=== PATIENT | male | born 1975 | race Caucasian/White ===

== ENCOUNTER 2023-09-08 15:41 | Outpatient (CLI) | payer OTHER, SELFPAY ==
--- NOTE | ~2023-09-08 | MR_ITS ---
EXAMINATION: MR knee RT w con DATE: 09/08/2023 16:42 INDICATION: Right knee pain TECHNIQUE: Magnetic resonance imaging (MRI) of the right knee was performed without intravenous contr ast. Sequences included coronal PD-weighted FSE, coronal PD-weighted FS FSE, sagittal T2-weighted FS E, sagittal PD-weighted FS FSE and axial PD weighted fat saturated FSE. COMPARISON: None. FINDINGS: Medial compartment: Complex tear at the posterior horn and posterior body of the medial meniscus. There is medial extrusi on of the medial meniscal body. There is scattered partial thickness chondral fissuring along the ant erior weightbearing medial femoral condyle at least a portion which is likely deeper with subtle unde rlying cortical irregularity . Small region of partial-thickness cartilage loss with smooth chondral surface along the posterior margin of the medial tibial plateau underlying the posterior horn of the medial meniscus. Small marginal osteophytes along the medial tibial plateau and small to moderate-siz ed marginal ossified swelling the weightbearing medial femoral condyle. Lateral compartment: Lateral meniscus is normal. Partial-thickness chondral ulceration with deep fissuring and minimal und erlying subarticular edema-like signal change at the posterior aspect of the lateral tibial plateau a nd at the central weightbearing lateral femoral condyle. Small marginal osteophytes are present. Patellofemoral compartment: Deep chondral ulceration with subarticular cystlike and edema-like signal changes at the inferior and superomedial aspect of the lateral patellar facet. Partial-thickness chondral ulceration does appear to involve greater than 50% the cartilage thickness but without degenerative subchondral changes at the lateral trochlea. Moderate-sized patellar and trochlear marginal osteophytes are present. Ligaments and tendons: Anterior and posterior cruciate ligaments are normal. The medial collateral ligament and fibular tracy ateral ligament complex are normal. The extensor mechanism is normal. The visualized medial and later al hamstring tendons as well as the iliotibial band are normal. Fluid: Small right knee joint effusion. Couple small loose osteochondral bodies are seen within the poplitea l recess. Small multilobulated ganglion cyst, potentially para meniscal cyst arising from the medial meniscal tear and extending between the distal semimembranosus and gracilis tendons. Osseous/other: No fracture or pathologic marrow replacing process. Red marrow expansion seen in the distal femur pro ximal to the physeal scar. IMPRESSION: 1. Complex tear of the posterior horn and posterior body of the medial meniscus. 2. 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 3. Likely reactive small right knee joint effusion. Reviewed, dictated and finalized at location A. IMPRESSION: 1. Complex tear of the posterior horn and posterior body of the medial meniscus . 2. Tricompartmental osteoarthritis, moderate in the patellofemoral compartment with high-grade patellar and moderate grade trochlear chondromalacia, mild in t he lateral compartment with high-grade chondromalacia at both sides of the join t space and mild with moderate grade chondromalacia at the medial compartment. 3. Likely reactive small right knee joint effusion.
--- NOTE | ~2023-09-08 | MR_ITS ---
EXAMINATION: MR knee LT wo con DATE: 09/08/2023 16:42 INDICATION: Left knee pain TECHNIQUE: Magnetic resonance imaging (MRI) of the left knee was performed without intravenous contra st. Sequences included coronal PD-weighted FSE, coronal PD-weighted FS FSE, sagittal T2-weighted FSE , sagittal PD-weighted FS FSE and axial PD weighted fat saturated FSE. COMPARISON: None. FINDINGS: Medial compartment: There is medial extrusion of the medial meniscal body. There is a tear, likely complex at the lateral side of the posterior horn which appears to include both radial and longitudinal horizontal componen ts. Increased signal in the meniscal body which does not unambiguously contact the articular surface consistent with mucoid degeneration. There is deep chondral ulceration with subtle underlying cortica l irregularity and low signal intensity eburnation along the medial half of the anterior to central w eightbearing medial femoral condyle. Additional deep chondral ulceration along the anteromedial flora n of the medial tibial plateau. Moderate size marginal osteophytes are present on both the medial tib ial plateau and weightbearing medial femoral condyle. Lateral compartment: Lateral meniscus is normal. Partial-thickness chondral ulceration with deep fissuring at the central weightbearing lateral femoral condyle with minimal underlying cortical irregularity and small focus o f minimal subarticular edema-like signal change. Small region of deep chondral ulceration along the p osterior rim of the lateral tibial plateau. There are small marginal osteophytes along the lateral ti bial plateau and moderate-sized marginal osteophytes along the weightbearing lateral femoral condyle. Patellofemoral compartment: There is mild lateral patellar tilt and subluxation. Deep chondral ulceration with associated mild un derlying cortical irregularity along the patellar apical ridge and immediately adjacent medial aspect of the lateral facet as well as the juxtaposed superolateral aspect of the lateral trochlea. Ligaments and tendons: Posterior cruciate ligament is normal. The anterior cruciate ligament demonstrates a normal angle rel ative to Blumensaat line. It appears thickened with increased intrasubstance signal which could be se en with mucoid degeneration. There appears be subtle waviness to some of the fibers of the posterolat eral component of the ligament and could not exclude partial tear. The medial collateral ligament and fibular collateral ligament complex are normal. The patellar and quadriceps tendons are normal. The visualized medial and lateral hamstring tendons as well as the iliotibial band are normal. Fluid: Small left knee joint effusion. No loose osteochondral bodies identified.. Small Barrow's cyst. Osseous/other: In addition to the mild lateral patellar tilt and subluxation there is very subtle lateral subluxatio n of the tibia with respect to the femoral condyles. There is some red marrow reexpansion in the dist al femur proximal to the physeal scar. No fracture or pathologic marrow replacing process. IMPRESSION: 1. Complex tear at the posterior horn of the medial meniscus. 2. Tricompartmental osteoarthritis, moderate with regions of high-grade chondromalacia at both the me dial and patellofemoral compartments and mild with moderate and high-grade chondromalacia in the late ral compartment. 3. Likely mucoid degeneration of the anterior cruciate ligament but with some subtle laxity to the fi bers of the posterolateral component. This could be due to the medial compartment predominant joint s pace narrowing and negligible lateral subluxation of the tibia relative to the femur however could no t absolutely exclude partial tear. Correlate with physical exam to assess for degree of functional in tegrity. Reviewed, dictated and finalized at location A. Electron
== END 2023-09-08 15:42 | disposition home or self-care (01) ==
LOC: ANHIMG 15:44
PROVIDERS: Visit Provider Orthopaedic Surgery
DX: S83.231A Complex tear of medial meniscus, current injury, right knee, initial encounter (principal); S83.232A Complex tear of medial meniscus, current injury, left knee, initial encounter; M17.0 Bilateral primary osteoarthritis of knee; M94.261 Chondromalacia, right knee; M94.262 Chondromalacia, left knee; X58.XXXA Exposure to other specified factors, initial encounter
CPT/HCPCS: 73721; 73722

== ENCOUNTER 2023-12-07 07:11 | Outpatient (CLI) | payer OTHER, SELFPAY ==
[2023-12-07 07:59] LABS: Basophils Absolute Auto 0.1 K/mm3 (0.0-0.1); Basophils Percent Auto 0.5 % (0.2-1.2); Eosinophils Absolute Auto 0.2 K/mm3 (0-0.3); Eosinophils Percent Auto 1.5 % (0-4.4); Hematocrit 44.2 % (42.0-52.0); Hemoglobin 13.9 g/dL (14.0-18.0); Immature Granulocyte Absolute 0.06 K/mm3 (0.00-0.031); Immature Granulocyte Percent A 0.5 % (0-0.5); Lymphocytes Absolute Auto 2.27 K/mm3 (0.9-3.2); Lymphocytes Percent Auto 20.5 % (18.3-44.2); Mean Corpuscular HGB Conc 31.4 g/dl (32-36); Mean Corpuscular Hemoglobin 25.1 pg (26-34); Mean Corpuscular Volume 79.9 fl (80-100); Mean Platelet Volume 9.1 fl (7.4-10.4); Monocytes Absolute Auto 0.9 K/mm3 (0.1-0.6); Monocytes Percent Auto 8.3 % (2.6-8.5); Neutrophils Absolute Auto 7.6 K/mm3 (1.3-6.7); Neutrophils Percent Auto 68.7 % (45.5-73.1); Platelet Count Result 320 k/mm3 (150-375); Red Blood Count 5.53 M/mm3 (4.6-6.20); Red Cell Distribution Width 17.6 % (11.5-14.5); White Blood Count 11.1 K/mm3 (4.5-10.0)
[2023-12-07 08:12] LABS: Alanine Aminotransferase 25 U/L (6-50); Albumin Level 4.5 g/dL (3.5-5.1); Alkaline Phosphatase 88 U/L (38-126); Anion Gap 10 mmol/L (4-12); Aspartate Amino Transferase 22 U/L (17-59); Bilirubin,Total 0.5 mg/dL (0.2-1.3); Blood Urea Nitrogen 18 mg/dL (9-20); CRP 1.4 mg/dL (<1.0); Calcium 8.9 mg/dL (8.4-10.2); Carbon Dioxide 23 mmol/L (22-30); Chloride 104 mmol/L (98-107); Estimated Glomerular Filt Rate > 60; Glucose 96 mg/dL (65-110); Potassium 3.9 mmol/L (3.4-5.0); Sodium 137 mmol/L (137-145)
[2023-12-07 08:25] LABS: Hemoglobin A1C 6.3 % (<5.7)
[2023-12-07 08:48] LABS: Erythrocyte Sedimentation Rate 8 mm/hr (0-20)
[2023-12-07 09:12] LABS: Folic Acid 8.4 ng/mL (2.76->20)
[2023-12-09 13:33] LABS: PSA, Free 0.4 ng/mL; PSA, Total 2.1 ng/mL (< OR = 4.0); Percent Free Prostate Spec Ag 19 % (calc) (>25)
[2023-12-13 15:08] LABS: Testosterone Free 62.3 pg/mL (35.0-155.0); Testosterone Total 312 ng/dL (250-1100)
== END 2023-12-07 07:12 | disposition home or self-care (01) ==
DX: E29.1 Testicular hypofunction (principal); K50.111 Crohn's disease of large intestine with rectal bleeding; R53.83 Other fatigue; R73.03 Prediabetes; Z12.5 Encounter for screening for malignant neoplasm of prostate
CPT/HCPCS: 36415; 80053; 82607; 82746; 83036; 84153; 84154; 84402; 84403; 85025; 85652; 86140

== ENCOUNTER 2024-01-24 09:50 | Emergency (ER) | payer OTHER, SELFPAY ==
[2024-01-24] VITALS (8 sets, daily range): BP systolic 124–144; BP diastolic 74–112; PULSE 75–94; RESP 12–20; TEMP 36.4; O2SAT 94–100
--- NOTE | ~2024-01-24 | CT_ITS ---
EXAMINATION: CT facial & cervical spine wo DATE: 01/24/2024 11:04 INDICATION: Head injury. TECHNIQUE: Computed tomography (CT) of the maxillofacial region and cervical spine was performed with out intravenous contrast. Automated exposure control and iterative reconstruction technique were empl oyed. The dose-length product was 634.26 mGy-cm. COMPARISON: None FINDINGS: MAXILLOFACIAL CT: There is mucosal thickening in the paranasal sinuses. There is rightward deviation of anterior nasal septum and leftward deviation of posterior nasal septum. No fracture. CERVICAL SPINE CT: Alignment is normal. Vertebral body heights are normal. There is mildly decreased disc height at C6-C 7. The following disc levels are specifically discussed: C2-C3: There is no uncovertebral joint osteoarthritis. There is severe right and moderate left facet joint osteoarthritis. There is mild right neural foraminal stenosis. There is no central canal stenos is. C3-C4: There is mild bilateral uncovertebral joint osteoarthritis. There is severe right and moderate left facet joint osteoarthritis. There is mild right neural foraminal stenosis. There is mild centra l canal stenosis. C4-C5: There is no uncovertebral joint osteoarthritis. There is severe bilateral facet joint osteoart hritis. There is no neural foraminal stenosis. There is mild central canal stenosis. C5-C6: There is mild bilateral uncovertebral joint osteoarthritis. There is mild bilateral facet join t osteoarthritis. There is no neural foraminal stenosis. There is mild central canal stenosis. C6-C7: There is mild bilateral uncovertebral joint osteoarthritis. There is mild bilateral facet join t osteoarthritis. There is no neural foraminal stenosis. There is mild central canal stenosis. C7-T1: There is no uncovertebral joint osteoarthritis. There is severe bilateral facet joint osteoart hritis. There is no neural foraminal stenosis. There is mild central canal stenosis. IMPRESSION: 1. No fracture. 2. Mild cervical spondylosis. Reviewed, dictated and finalized at location A. SPLITTER
--- NOTE | ~2024-01-24 | CT_ITS ---
EXAMINATION: CT brain wo con DATE: 01/24/2024 11:04 INDICATION: Head injury. TECHNIQUE: Computed tomography (CT) of the head was performed without intravenous contrast. The mA wa s adjusted according to patient size. Iterative reconstruction technique was employed. The dose-lengt h product was 681.00 mGy-cm. COMPARISON: None FINDINGS: There is no intracranial hemorrhage, acute infarction, or abnormal intracranial mass lesion . The ventricles are normal in size. There is mucosal thickening in the paranasal sinuses. The masto id air cells are normal. The orbits are normal. IMPRESSION: 1. Normal brain. Reviewed, dictated and finalized at location A. OPERATOR IMPRESSION: 1. Normal brain.
--- NOTE | ~2024-01-24 | XR_ITS ---
XR shoulder RT min 2V Ordering provider: Rena Garcia APRN History: . METAL BEAM FELL ON HEAD AND SHOULDERS . Comparison: None. FINDINGS: BONES: No acute fracture or dislocation. JOINT SPACES: The acromioclavicular joint is normal. The glenohumeral joint is normal. SOFT TISSUES: Normal. IMPRESSION: No acute osseous abnormality right shoulder. Reviewed, dictated and finalized at location A. ATTENDANT
--- NOTE | ~2024-01-24 | CT_ITS ---
EXAMINATION: CT chest abdomen pelvis w con DATE: 01/24/2024 11:05 INDICATION: Traumatic injury. TECHNIQUE: Computed tomography (CT) of the chest, abdomen, and pelvis was performed with 100 mL Omnip aque 350 intravenous contrast. Automated exposure control and iterative reconstruction technique were employed. The dose-length product was 1994.07 mGy-cm. COMPARISON: None FINDINGS: CHEST CT: The lungs demonstrate mild atelectasis. No pleural effusion. The heart size is normal. No pericardial effusion. There is bilateral gynecomastia. There is mild thoracic spondylosis. ABDOMEN/PELVIS CT: The liver, gallbladder, spleen, pancreas, and adrenal glands are normal. There are cysts in the kidne ys measuring up to 5.1 cm on the left. There is an umbilical hernia containing fat. The prostate is m ildly enlarged. There is a left inguinal hernia containing fat. There is diverticulosis of the colon without evidence of diverticulitis. The appendix is normal. There is no ascites. There are no patholo gically enlarged lymph nodes. There is moderate lower lumbar spondylosis. IMPRESSION: 1. Umbilical hernia containing fat. 2. Left inguinal hernia containing fat. Reviewed, dictated and finalized at location A. VISION AUDIO ENGINEER
--- NOTE | ~2024-01-24 | XR_ITS ---
XR shoulder LT min 2V Ordering provider: Rena Garcia APRN History: . METAL BEAM FELL ON HEAD AND SHOULDERS . Comparison: None. FINDINGS: BONES: No acute fracture or dislocation. JOINT SPACES: The acromioclavicular joint is normal. The glenohumeral joint is normal. SOFT TISSUES: Normal. IMPRESSION: No acute osseous abnormality left shoulder. Reviewed, dictated and finalized at location A. ENG
[2024-01-24] MEDS: ONDANSETRON INJ 4 MG/2 ML VIAL IV PUSH (10:36)
[2024-01-24 10:58] LABS: Estimated CRCL calculation 98 ml/min; Estimated Glomerular Filt Rate 59
--- NOTE | 2024-01-24 11:07 | ED_ITS ---
HPI - Head Injury General Chief complaint: Head Injury Stated complaint: head injury Time Seen by Provider: 01/24/24 10:21 History of Present Illness HPI Narrative: Patient is a 48-year-old male who presents to the ER with head injury. 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 patient denies loss of consciousness. He endorses head pain, neck pain, feeling of drainage from his ears bilaterally, feeling of drainage from his nose, back pain, and bilateral shoulder pain. Patient is very anxious upon arrival to the ER and is diaphoretic. He denies chest pain, recent illness. Patient endorses numbness and tingling in his extremities and shortness of breath. He denies any medical history related to this ER visit. Related Data Allergies Allergy/AdvReac Type Severity Reaction Status Date / Time Androgenic Anabolic Steroid Allergy Unknown Verified 01/24/24 10:28 meperidine [From Demerol] Allergy Chest Pain Verified 01/24/24 10:28 morphine Allergy Hives Verified 01/24/24 10:28 promethazine [From Phenergan] Allergy Chest Pain Verified 01/24/24 10:28 tetracycline Allergy Unknown Verified 01/24/24 10:28 Review of Systems Review of Systems: All systems reviewed & are unremarkable except as noted in HPI and below Exam Narrative: GENERAL: Well appearing, obese, non-toxic, in acute distress d/t pain, anxiety. HEAD: Normocephalic, linear laceration across middle of forehead approximately two inches long, bleeding controlled NECK: Supple. No adenopathy, no masses. Endorses pain with palpation. RESPIRATORY: Airway patent, respirations labored d/t SOB. Clear to auscultation bilaterally, no rales, rhonchi, wheezing. CARDIOVASCULAR: Regular rate and rhythm without murmurs, rubs, or gallops. Peripheral pulses 2+ and equal bilaterally. ABDOMINAL: Soft, nontender, nondistended, no hepatosplenomegaly. Normoactive BS. MUSCULOSKELETAL: Moves all extremities. Strength/ROM intact without gross deformities. SKIN: Warm, dry, normal color. No rashes. NEURO: A&O X3. Speech clear. Cranial nerves II-XII grossly intact. No ataxic movements. PSYCHIATRIC: Anxious and tearful. Course Vital Signs Vital signs: Vital Signs Temperature 36.4 C 01/24/24 09:51 Pulse Rate 93 01/24/24 09:51 Respiratory Rate 20 01/24/24 09:51 Blood Pressure 144/112 H 01/24/24 09:51 Pulse Oximetry 100 01/24/24 09:51 Temperature 36.4 C 01/24/24 09:51 Pulse Rate 94 01/24/24 13:01 Respiratory Rate 16 01/24/24 13:01 Blood Pressure 130/85 01/24/24 13:01 Pulse Oximetry 100 01/24/24 13:01 Procedures Laceration Laceration 1: Date: 01/24/24 Time: 14:00 Site: scalp and face Size (cm): 6 (cm) Description: linear Depth: simple, single layer Local Anesthetic: lidocaine 1% and with epi Amount of anesthesia used (mL): 8 Pre-repair: irrigated extensively ====== Skin Level ====== Skin layer closed with: nylon and alan (6) Size (cm): 5-0 Number of sutures: 4 Technique: simple, interrupted ====== Subcutaneous Layer ====== ====== Muscle Layer ====== ====== Tendon Layer ====== MDM - Head Injury MDM Narrative Medical decision making narrative: Patient is a 48-year-old male who presents to the ER with head injury. 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 patient denies loss of consciousness. He endorses head pain, neck pain, feeling of drainage from his ears bilaterally, feeling of drainage from his nose, back pain, and bilateral shoulder pain. Patient is very anxious upon arrival to the ER and is diaphoretic. He denies chest pain, recent illness. Patient endorses numbness and tingling in his extremities and shortness of breath. He denies any medical history related to this ER visit. Labs Ordered: CBC, CMP Imaging Ordered: CT scans head/cervical/spine/facial bones, R shoulder x-ray, L shoulder x-ray, CT scans chest/abdomen/pelvis Results: No acute abnormalities on any of patient's CT scans or x-rays. Patient's blood work results were unremarkable. Diagnosis: concussion, forehead laceration Risks: Simplified Motor Score is 2 =low risk for need for neurosurgical intervention, low risk for mortality Patient's head laceration was cleaned with normal saline. the site was cleaned with Betadine. 1% lidocaine with epinephrine was injected into the laceration site. Four 5.0 Ethilon sutures were placed at the base of pt's forehead, 6 alan were placed from the patient's hairline and above and his scalp. Patient tolerated procedure well. Patient Education/Shared MDM: Results shared with patient. Patient reports his pain is well controlled after Dilaudid and Toradol administration. Tdap injection was administered to patient. Zofran and 1 L normal saline IV fluid bolus given to pt. Extensive education was provided to patient and his regarding post concussive syndrome and when to return to the ER. Patient and his verbalized understanding and are in agreement with plan. patient return to the ER or his primary care provider in 5 days for suture removal and to 7 days for staple removal. Differential Diagnosis Differential diagnosis: Likely concussion without loss of consciousness, epidural hematoma, closed head injury, subarachnoid hematoma, postconcussion syndrome and subdural hematoma Lab Data Attestation: I reviewed the patient's lab results. 01/24/24 11:39 01/24/24 11:39 Labs: Lab Results 01/24/24 01/24/24 Range/Units 10:52 11:39 WBC 12.5 H (4.5-10.0) K/mm3 RBC 5.64 (4.6-6.20) M/mm3 Hgb 14.5 (14.0-18.0) g/dL Hct 44.6 (42.0-52.0) % MCV 79.1 L (80-100) fl MCH 25.7 L (26-34) pg MCHC 32.5 (32-36) g/dl RDW 17.0 H (11.5-14.5) % Plt Count 339 (150-375) k/mm3 MPV 9.4 (7.4-10.4) fl Immature Gran % (Auto) 0.6 H (0-0.5) % Neut % (Auto) 70.6 (45.5-73.1) % Lymph % (Auto) 18.7 (18.3-44.2) % Sumner % (Auto) 8.8 H (2.6-8.5) % Eos % (Auto) 1.0 (0-4.4) % Baso % (Auto) 0.3 (0.2-1.2) % Lymph # (Auto) 2.33 (0.9-3.2) K/mm3 Sumner # (Auto) 1.1 H (0.1-0.6) K/mm3 Eos # (Auto) 0.1 (0-0.3) K/mm3 Baso # (Auto) 0.0 (0.0-0.1) K/mm3 Abs Immat Gran (auto) 0.07 H (0.00-0.031) K/mm3 Absolute Neuts (auto) 8.8 H (1.3-6.7) K/mm3 Absolute Nucleated RBC 0.000 (0.0-0.012) K/mm3 Nucleated RBC % 0.0 (0.0-0.2) % Sodium 137 (137-145) mmol/L Potassium 3.6 (3.4-5.0) mmol/L Chloride 103 (98-107) mmol/L Carbon Dioxide 23 (22-30) mmol/L Anion Gap 11 (4-12) mmol/L BUN 18 (9-20) mg/dL Creatinine 1.30 1.10 (0.8-1.5) mg/dL Estim Creat Clear Calc 98 115 ml/min Estimated GFR 59 > 60 (59 - ) Glucose 89 (65-110) mg/dL Calcium 9.2 (8.4-10.2) mg/dL Total Bilirubin 0.6 (0.2-1.3) mg/dL AST 27 (17-59) U/L ALT 30 (6-50) U/L Alkaline Phosphatase 87 (38-126) U/L Total Protein 8.0 (6.3-8.2) g/dL Albumin 4.5 (3.5-5.1) g/dL Imaging Data Attestation: I personally reviewed and interpreted this imaging study as follows: Radiologist's impression: Impressions Head CT 01/24/24 11:15 IMPRESSION: 1. Normal brain. Chest/Abdomen/Pelvis CT 01/24/24 11:17 IMPRESSION: 1. Umbilical hernia containing fat. 2. Left inguinal hernia containing fat. Shoulder X-Ray 01/24/24 11:25 IMPRESSION: No acute osseous abnormality right shoulder. Shoulder X-Ray 01/24/24 11:27 IMPRESSION: No acute osseous abnormality left shoulder. Head/Cervical Spine/Facial Bones CT 01/24/24 11:35 IMPRESSION: 1. No fracture. 2. Mild cervical spondylosis. Discharge Plan Discharge Clinical Impression: Closed head injury, Concussion without loss of consciousness Patient Disposition: Home, Self-Care Condition: Stable Instructions: Antibiotic Form, Concussion (ED), Head Injury (ED) Additional Instructions: Please return to the ER with any worsening symptoms. Take all medications as prescribed. Follow-up with your primary care provider or in the ER for suture and staple removal. Prescriptions: New hydrocodone-acetaminophen 5-325 mg tablet 1 tablet PO Q6H PRN (Reason: pain) Qty: 6 0RF Follow-up/Referrals: PHYSICIAN NOT ON STAFF,NONSTAFF [Non-Staff] -
[2024-01-24] MEDS: LORazepam INJ (*CRX) 2 MG/ML VIAL 0.5 MG IV PUSH (11:19)
[2024-01-24] MEDS: HYDROmorphone HCL INJ (*CRX) 1 MG/ML SYR IV PUSH (11:20)
[2024-01-24] MEDS: SODIUM CHLORIDE 0.9% IV 1,000 ML 999 ML IV CONT (11:20)
[2024-01-24 11:51] LABS: Basophils Percent Auto 0.3 % (0.2-1.2); Eosinophils Absolute Auto 0.1 K/mm3 (0-0.3); Hematocrit 44.6 % (42.0-52.0); Hemoglobin 14.5 g/dL (14.0-18.0); Immature Granulocyte Absolute 0.07 K/mm3 (0.00-0.031); Immature Granulocyte Percent A 0.6 % (0-0.5); Lymphocytes Absolute Auto 2.33 K/mm3 (0.9-3.2); Lymphocytes Percent Auto 18.7 % (18.3-44.2); Mean Corpuscular HGB Conc 32.5 g/dl (32-36); Mean Corpuscular Hemoglobin 25.7 pg (26-34); Mean Corpuscular Volume 79.1 fl (80-100); Mean Platelet Volume 9.4 fl (7.4-10.4); Monocytes Absolute Auto 1.1 K/mm3 (0.1-0.6); Monocytes Percent Auto 8.8 % (2.6-8.5); Neutrophils Absolute Auto 8.8 K/mm3 (1.3-6.7); Neutrophils Percent Auto 70.6 % (45.5-73.1); Platelet Count Result 339 k/mm3 (150-375); Red Blood Count 5.64 M/mm3 (4.6-6.20); White Blood Count 12.5 K/mm3 (4.5-10.0)
[2024-01-24 12:03] LABS: Alanine Aminotransferase 30 U/L (6-50); Albumin Level 4.5 g/dL (3.5-5.1); Alkaline Phosphatase 87 U/L (38-126); Anion Gap 11 mmol/L (4-12); Aspartate Amino Transferase 27 U/L (17-59); Bilirubin,Total 0.6 mg/dL (0.2-1.3); Blood Urea Nitrogen 18 mg/dL (9-20); Calcium 9.2 mg/dL (8.4-10.2); Carbon Dioxide 23 mmol/L (22-30); Chloride 103 mmol/L (98-107); Estimated CRCL calculation 115 ml/min; Estimated Glomerular Filt Rate > 60; Glucose 89 mg/dL (65-110); Potassium 3.6 mmol/L (3.4-5.0); Sodium 137 mmol/L (137-145)
[2024-01-24] MEDS: HYDROmorphone HCL INJ (*CRX) 1 MG/ML SYR 0.5 MG IV PUSH (12:15)
[2024-01-24] MEDS: TETANUS,DIPHTHERIA,AC PERTUSSIS ADULT (0.5 ML) BOOSTRIX IM (12:16)
[2024-01-24] MEDS: KETOROLAC 15 MG/ML VIAL (*BKC) IV PUSH (12:16)
[2024-01-24] MEDS: HYDROcodone/acetaminophen (*CRX) 5-325 MG TABLET 1 TAB PO (14:33)
== END 2024-01-24 14:47 | disposition home or self-care (01) ==
PROVIDERS: Emergency Provider Registered Nurse
DX: S06.0X0A Concussion without loss of consciousness, initial encounter (principal); S01.81XA Laceration without foreign body of other part of head, initial encounter; Z23 Encounter for immunization; K42.9 Umbilical hernia without obstruction or gangrene; K40.90 Unilateral inguinal hernia, without obstruction or gangrene, not specified as recurrent; M47.812 Spondylosis without myelopathy or radiculopathy, cervical region; W20.8XXA Other cause of strike by thrown, projected or falling object, initial encounter
CPT/HCPCS: 12014; 36415; 70450; 70486; 71260; 72125; 73030; 74177; 80053; 85025; 90471; 90715; 96361; 96374; 96375; 96376; 99284; A9270; J1171; J1885; J2060; J2405; J7030; L0140; Q9967

== ENCOUNTER 2024-03-07 09:52 | Outpatient (CLI) | payer OTHER, SELFPAY ==
--- NOTE | ~2024-03-07 | MR_ITS ---
EXAMINATION: MR brain/brain stem wo/w con DATE: 03/07/2024 10:36 INDICATION: Headache. TECHNIQUE: Magnetic resonance imaging (MRI) of the brain and brainstem was performed without and with 20 mL MultiHance intravenous contrast. COMPARISON: Head CT 01/24/2024 FINDINGS: There is no intracranial hemorrhage, acute infarction, or abnormal intracranial mass lesion . The ventricles are normal in size. There is mucosal thickening in the paranasal sinuses. The orbits are normal. The mastoid air cells are normal. IMPRESSION: 1. Normal brain. Reviewed, dictated and finalized at location A. ION OPERATOR IMPRESSION: 1. Normal brain.
== END 2024-03-07 09:53 | disposition home or self-care (01) ==
PROVIDERS: Visit Provider Internal Medicine
DX: G44.309 Post-traumatic headache, unspecified, not intractable (principal)
CPT/HCPCS: 70553; A9577